=== PATIENT | female | born 1990 | race Caucasian/White ===

== ENCOUNTER 2023-12-03 21:37 | Inpatient (IN) | payer BC, SELFPAY ==
--- NOTE | ~2023-12-03 | MR_ITS ---
EXAMINATION: MR cervical spine wo/w con DATE: 12/04/2023 14:54 INDICATION: Ascending neuropathy. TECHNIQUE: Magnetic resonance imaging (MRI) of the cervical spine was performed without and with 20 m L MultiHance intravenous contrast. COMPARISON: None FINDINGS: There is mild kyphosis of cervical spine. Vertebral body heights are normal. There is mildl y decreased disc height at C5-C6. There are lesions of increased T2-weighted signal intensity in the spinal cord at C2-C3 and C3-C4. There is contrast enhancement in the lesion at C3-C4. The following d isc levels are specifically discussed: C2-C3: The disc does not extend beyond the endplate margin. There is no uncovertebral joint osteoarth ritis. There is moderate bilateral facet joint osteoarthritis. There is no neural foraminal stenosis. There is no central canal stenosis. C3-C4: There is a central extrusion. There is mild bilateral uncovertebral joint osteoarthritis. Ther e is mild bilateral facet joint osteoarthritis. There is no neural foraminal stenosis. There is no ce ntral canal stenosis. C4-C5: There is a central protrusion. There is mild right uncovertebral joint osteoarthritis. There i s no facet joint osteoarthritis. There is no neural foraminal stenosis. There is no central canal philly nosis. C5-C6: There is a central extrusion. There is mild bilateral uncovertebral joint osteoarthritis. Ther e is no facet joint osteoarthritis. There is no neural foraminal stenosis. There is mild central vidhi l stenosis. C6-C7: There is a central extrusion. There is no uncovertebral joint osteoarthritis. There is no face t joint osteoarthritis. There is no neural foraminal stenosis. There is mild central canal stenosis. C7-T1: The disc does not extend beyond the endplate margin. There is no uncovertebral joint osteoarth ritis. There is mild bilateral facet joint osteoarthritis. There is no neural foraminal stenosis. The re is no central canal stenosis. IMPRESSION: 1. 2 spinal cord lesions with enhancement in one of the lesions, most likely multiple sclerosis. 2. Mild cervical spondylosis. Reviewed, dictated and finalized at location A. IMPRESSION: 1. 2 spinal cord lesions with enhancement in one of the lesions, most likely mu ltiple sclerosis. 2. Mild cervical spondylosis.
--- NOTE | ~2023-12-03 | CT_ITS ---
EXAMINATION: CT thoracic lumbar w con DATE: 12/04/2023 15:08 INDICATION: Ascending neuropathy. TECHNIQUE: Computed tomography (CT) of the thoracic and lumbar spine was performed with 100 mL Omnipa que 350 intravenous contrast. Automated exposure control and iterative reconstruction technique were employed. The dose-length product was 529.67 mGy-cm. COMPARISON: Thoracic and lumbar spine MRI 12/04/2023 FINDINGS: CT THORACIC SPINE: Bone alignment is normal. There are Schmorl's nodes at multiple levels. There is m ildly decreased disc height at T5-T6 and T7-T8. There is multilevel mild facet joint osteoarthritis. There is mild central canal stenosis at T5-T6 and T7-T8. No neural foraminal stenosis. CT LUMBAR SPINE: There is 5 degrees levocurvature of lumbar spine. Vertebral body heights are normal. There is mildly decreased disc height at L4-L5. The following disc levels are specifically discussed : L1-L2: The disc does not extend beyond the endplate margin. There is mild bilateral facet joint osteo arthritis. There is no neural foraminal stenosis. There is no central canal stenosis. L2-L3: The disc does not extend beyond the endplate margin. There is mild bilateral facet joint osteo arthritis. There is no neural foraminal stenosis. There is no central canal stenosis. L3-L4: The disc is mildly bulging. There is mild bilateral facet joint osteoarthritis. There is mild bilateral neural foraminal stenosis. There is no central canal stenosis. L4-L5: The disc is bulging. There is mild bilateral facet joint osteoarthritis. There is mild bilater al neural foraminal stenosis. There is mild central canal stenosis. L5-S1: The disc is bulging. There is mild bilateral facet joint osteoarthritis. There is no neural fo raminal stenosis. There is mild central canal stenosis. IMPRESSION: 1. Mild thoracic spondylosis. 2. Mild lumbar spondylosis. Reviewed, dictated and finalized at location A.
--- NOTE | ~2023-12-03 | CT_ITS ---
EXAMINATION: CT cervical spine w con DATE: 12/04/2023 15:08 INDICATION: Ascending neuropathy. TECHNIQUE: Computed tomography (CT) of the cervical spine was performed with 150 mL Omnipaque 350 int ravenous contrast. Automated exposure control and iterative reconstruction technique were employed. T he dose-length product was 529.67 mGy-cm. COMPARISON: Cervical spine MRI 12/04/2023 FINDINGS: There is mild scarring at the lung apices. There is kyphosis of cervical spine. Vertebral b armez heights are normal. Intervertebral disc heights are normal. The following disc levels are specifi viviana discussed: C2-C3: There is mild bilateral uncovertebral joint osteoarthritis. There is moderate bilateral facet joint osteoarthritis. There is no neural foraminal stenosis. There is no central canal stenosis. C3-C4: There is moderate right and mild left uncovertebral joint osteoarthritis. There is mild bilate ral facet joint osteoarthritis. There is no neural foraminal stenosis. There is no central canal sten osis. C4-C5: There is moderate right and mild left uncovertebral joint osteoarthritis. There is mild right facet joint osteoarthritis. There is mild right neural foraminal stenosis. There is no central canal stenosis. C5-C6: There is mild bilateral uncovertebral joint osteoarthritis. There is no facet joint osteoarthr itis. There is no neural foraminal stenosis. There is no central canal stenosis. C6-C7: There is no uncovertebral joint osteoarthritis. There is mild bilateral facet joint osteoarthr itis. There is no neural foraminal stenosis. There is no central canal stenosis. C7-T1: There is no uncovertebral joint osteoarthritis. There is mild bilateral facet joint osteoarthr itis. There is no neural foraminal stenosis. There is no central canal stenosis. IMPRESSION: 1. Mild cervical spondylosis. Reviewed, dictated and finalized at location A.
--- NOTE | ~2023-12-03 | CT_ITS ---
EXAMINATION: CT brain wo/w con DATE: 12/04/2023 15:08 INDICATION: Ascending neuropathy. TECHNIQUE: Computed tomography (CT) of the head was performed without and with 150 mL Omnipaque 350 i ntravenous contrast. The mA was adjusted according to patient size. Iterative reconstruction techniqu e was employed. The dose-length product was 529.67 mGy-cm. COMPARISON: Brain MRI 12/04/2023 FINDINGS: There is no intracranial hemorrhage, acute infarction, or abnormal intracranial mass lesion . The ventricles are normal in size. The orbits are normal. The paranasal sinuses are clear. The mast oid air cells are normal. IMPRESSION: 1. Normal brain. Reviewed, dictated and finalized at location A. IMPRESSION: 1. Normal brain.
--- NOTE | ~2023-12-03 | MR_ITS ---
EXAMINATION: MR thoracic spine wo/w con DATE: 12/04/2023 14:54 INDICATION: Ascending neuropathy. TECHNIQUE: Magnetic resonance imaging (MRI) of the thoracic spine was performed without and with 20 m L MultiHance intravenous contrast. COMPARISON: None FINDINGS: Bone alignment is normal. There are Schmorl's nodes at multiple levels. There is mildly dec reased disc height at T5-T6 and T7-T8. At T5-T6, there is a central protrusion mild central canal philly nosis. At T7-T8, there is a central protrusion with mild central canal stenosis. There is multilevel mild facet joint osteoarthritis. No neural foraminal stenosis. There is increased T2-weighted signal intensity in the spinal cord at T8-T9 with contrast enhancement. There is increased T2-weighted signa l intensity in the spinal cord at the left at T6-T7. IMPRESSION: 1. Spinal cord lesions, most likely multiple sclerosis. Reviewed, dictated and finalized at location A.
--- NOTE | ~2023-12-03 | MR_ITS ---
EXAMINATION: MR lumbar spine wo/w con DATE: 12/04/2023 14:55 INDICATION: Ascending neuropathy. TECHNIQUE: Magnetic resonance imaging (MRI) of the lumbar spine was performed without and with 20 mL MultiHance intravenous contrast. COMPARISON: None FINDINGS: There is 5 degrees levocurvature of lumbar spine. There are Schmorl's nodes at multiple lev els. There is mildly decreased disc height at L4-L5. The distal spinal cord signal intensity is geoffrey l. The conus medullaris is at T12-L1. The following disc levels are specifically discussed: L1-L2: The disc does not extend beyond the endplate margin. There is no facet joint osteoarthritis. T here is no neural foraminal stenosis. There is no central canal stenosis. L2-L3: The disc does not extend beyond the endplate margin. There is mild bilateral facet joint osteo arthritis. There is no neural foraminal stenosis. There is no central canal stenosis. L3-L4: There is a left foraminal protrusion. There is mild bilateral facet joint osteoarthritis. Ther e is mild left neural foraminal stenosis. There is no central canal stenosis. L4-L5: The disc is bulging and has an annular fissure. There is mild left facet joint osteoarthritis. There is mild bilateral neural foraminal stenosis. There is mild central canal stenosis. L5-S1: The disc is bulging and has an annular fissure. There is mild bilateral facet joint osteoarthr itis. There is no neural foraminal stenosis. There is mild central canal stenosis. IMPRESSION: 1. Mild lumbar spondylosis. Reviewed, dictated and finalized at location A. IMPRESSION: 1. Mild lumbar spondylosis.
--- NOTE | ~2023-12-03 | MR_ITS ---
EXAMINATION: MR brain/brain stem wo/w con DATE: 12/04/2023 14:54 INDICATION: Ascending neuropathy. TECHNIQUE: Magnetic resonance imaging (MRI) of the brain and brainstem was performed without and with 20 mL MultiHance intravenous contrast. COMPARISON: None. FINDINGS: There are 2 foci of increased T2-weighted signal intensity in the left-sided deep cerebral white matter. There is increased T2-weighted signal intensity in the spinal cord at C3-C4. No contras t enhancement. There is no acute ischemic infarct or intracranial hemorrhage. The ventricles are norm al in size. There is mild mucosal thickening in the ethmoid sinuses. The orbits are normal. The masto id air cells are normal. IMPRESSION: 1. Cerebral white matter lesions and spinal cord lesion, most likely multiple sclerosis. Reviewed, dictated and finalized at location A. IMPRESSION: 1. Cerebral white matter lesions and spinal cord lesion, most likely multiple s clerosis.
--- NOTE | ~2023-12-03 | XR_ITS ---
EXAMINATION: XR lumbar puncture diagnostic DATE: 12/05/2023 13:04 INDICATION: Multiple sclerosis with ascending neuropathy TECHNIQUE: The procedure including the risks and benefits was discussed with the patient. Risks discu ssed included spinal headache, cerebrospinal fluid leak, bleeding, and infection. The patient underst ood the risks and agreed to proceed. A timeout was performed to verify the patient's name, date of , and procedure to be performed. The skin overlying the L3-L4 level was prepped and draped in usual sterile fashion. Subcutaneous 1% lidocaine was used for local anesthesia. A 22 gauge spinal n eedle was advanced under fluoroscopic guidance. The needle was removed and the entry site was cleaned and dressed. There were no immediate complications. A total of 1 fluoroscopic image(s) were obtaine d. The amount of fluoroscopy time used during this procedure was 0.1 minutes. Total DAP was 0.596 Gyc m^2 The patient was taken to the nursing area for observation. FINDINGS: Real-time fluoroscopy demonstrates the needle at the L3-L4 level. Opening pressure was 14 c m water. (Normal range is variably defined as 6-20 cm water and up to 25 cm water in obese patients. Pressure >25 cm water is one of the modified Dandy criteria for idiopathic intracranial hypertension) . 16 mL of clear, colorless fluid was collected in 4 tubes. IMPRESSION: 1. Successful fluoro-guided lumbar puncture with normal opening pressure of 14 cm water. Reviewed, dictated and finalized at location A.
[2023-12-03 22:12] VITALS: BP 121/85; PULSE 92; RESP 18; TEMP 36.1; O2SAT 100
[2023-12-03 23:37] VITALS: BP 125/74; PULSE 72; RESP 16; TEMP 36.6; O2SAT 100
--- NOTE | 2023-12-04 00:30 | ED.GENADULT ---
HPI - General Adult General Chief complaint: Unspecified Stated complaint: tingling/numbness/weakness from waist down Time Seen by Provider: 12/03/23 23:28 History of Present Illness HPI narrative: This is a 33-year-old female presenting with 3 weeks of peripheral neuropathy. Patient notes that she has had decreased sensation and tingling below the knees. she also says she feels like her legs are weaker although she has not had any falls. She states that sometimes she feels like she has decreased sensation when she wipes although that is intermittent and is not currently happening. She has not had any urinary retention, bowel incontinence, lower extremity weakness, fevers or trauma. no hx of ivda. Patient has no other neurologic deficits. Patient is being worked up for peripheral neuropathy by her primary care physician and he has ordered an extensive laboratory evaluation as well as nerve conduction studies that she is waiting for. Patient is concerned because she does not want to wait 2 weeks for her studies. Related Data Allergies Allergy/AdvReac Type Severity Reaction Status Date / Time No Known Allergies Allergy Verified 12/03/23 21:38 Exam Narrative: APPEARANCE: patient is tearful during the interview. Head: atraumatic. EYES: EOMI, NOSE: Atraumatic NECK: Trachea midline RESPIRATORY: No increased rate of breathing, CTAB CARDIOVASCULAR: RRR, ABDOMINAL: no suprapubic tenderness MUSCULOSKELETAl: No obvious deformities NEURO: Alert. Patient has decreased sensation in a stocking pattern below the knee. It does not follow a dermatomal distribution. Strength is intact at the ankles and knees. The patient is able to walk with a steady gait. No saddle anesthesia. no pain in the legs SKIN:: Warm, dry. Normal color PSYCHIATRIC: Tearful. Course Vital Signs Vital signs: Vital Signs Temperature 96.9 F L 12/03/23 22:12 Pulse Rate 92 12/03/23 22:12 Respiratory Rate 18 12/03/23 22:12 Blood Pressure 121/85 12/03/23 22:12 Pulse Oximetry 100 12/03/23 22:12 Oxygen Delivery Room Air 12/03/23 22:12 Temperature 97.9 F 12/03/23 23:37 Pulse Rate 67 12/04/23 01:23 Respiratory Rate 16 12/04/23 01:23 Blood Pressure 137/85 12/04/23 01:23 Pulse Oximetry 100 12/04/23 01:23 Oxygen Delivery Room Air 12/03/23 22:12 Medical Decision Making MDM Narrative Medical decision making narrative: -Course: 33-year-old female presenting for peripheral neuropathy. Patient says that she has intermittent numbness of groin and paresthesias/weakness below the knees. No weakness on my exam. Patient is tearful and wants to be admitted to get a MRI of head and spine. She asked that I speak with her friend who is a physician. We agreed to do a post void residual to rule out spinal cord compression. Patient then attempted to use the restroom and had a PVD of 400. Patient had denied difficulty urinating on initial interview. Patient will be admitted for neurological evaluation. -DDX includes but is not limited to: Peripheral neuropathy, Charcot Arin Tooth, cauda equina, MS -Co-morbidities complicating care: peripheral neuropathy -Independent interpretation of studies: Basic labs wnl. B12/Folate/ESR pending. -Discussion of Management/Consultants:Olesya Wisdom Hospitalist -Shared decision making / Disposition:observation Vital Signs Vital Signs: Vital Signs Temperature 96.9 F L 12/03/23 22:12 Pulse Rate 92 12/03/23 22:12 Respiratory Rate 18 12/03/23 22:12 Blood Pressure 121/85 12/03/23 22:12 Pulse Oximetry 100 12/03/23 22:12 Oxygen Delivery Room Air 12/03/23 22:12 Temperature 97.9 F 12/03/23 23:37 Pulse Rate 67 12/04/23 01:23 Respiratory Rate 16 12/04/23 01:23 Blood Pressure 137/85 12/04/23 01:23 Pulse Oximetry 100 12/04/23 01:23 Oxygen Delivery Room Air 12/03/23 22:12 Lab Data 12/04/23 00:52 12/04/23 00:52 Labs
[2023-12-04] MEDS: SODIUM CHLORIDE 0.9% IV 1,000 ML 999 ML IV CONT (00:58)
[2023-12-04 01:09] LABS: Basophils Percent Auto 0.6 % (0.2-1.2); Eosinophils Percent Auto 0.3 % (0-4.4); Hematocrit 38.2 % (37.0-47.0); Hemoglobin 12.6 g/dL (12.0-15.0); Immature Granulocyte Absolute 0.01 K/mm3 (0.00-0.031); Immature Granulocyte Percent A 0.2 % (0-0.5); Lymphocytes Absolute Auto 2.02 K/mm3 (0.9-3.2); Lymphocytes Percent Auto 31.4 % (18.3-44.2); Mean Corpuscular Hemoglobin 29.3 pg (26-34); Mean Corpuscular Volume 88.8 fl (80-100); Mean Platelet Volume 10.6 fl (7.4-10.4); Monocytes Absolute Auto 0.5 K/mm3 (0.1-0.6); Monocytes Percent Auto 8.4 % (2.6-8.5); Neutrophils Absolute Auto 3.8 K/mm3 (1.3-6.7); Neutrophils Percent Auto 59.1 % (45.5-73.1); Platelet Count Result 201 k/mm3 (150-375); Red Cell Distribution Width 13.2 % (11.5-14.5); White Blood Count 6.4 K/mm3 (4.5-10.0)
[2023-12-04 01:22] LABS: Alanine Aminotransferase 14 U/L (6-35); Alkaline Phosphatase 56 U/L (38-126); Anion Gap 9 mmol/L (4-12); Aspartate Amino Transferase 23 U/L (14-36); Bilirubin,Total 0.5 mg/dL (0.2-1.3); Blood Urea Nitrogen 13 mg/dL (7-17); CRP < 0.5 mg/dL (<1.0); Calcium 9.9 mg/dL (8.4-10.2); Carbon Dioxide 28 mmol/L (22-30); Chloride 102 mmol/L (98-107); Estimated CRCL calculation 115 ml/min; Estimated Glomerular Filt Rate > 60; Glucose 101 mg/dL (65-110); Potassium 3.5 mmol/L (3.4-5.0); Sodium 139 mmol/L (137-145)
[2023-12-04 01:23] VITALS: BP 137/85; PULSE 67; RESP 16; O2SAT 100
[2023-12-04 01:38] LABS: Erythrocyte Sedimentation Rate 26 mm/hr (0-20)
--- NOTE | 2023-12-04 02:12 | ADMGEN ---
This patient, Alexandra Santamaria, was admitted to 2 Medical Room 251-. Patient/family oriented to hospital policies and general routines including ID bracelet, bed and alarms, visiting hours, pain management, procedures, bathroom and other care routines, personal items, smoking policy, room service/diet, and visiting hours. Information on how to activate the Rapid Response Team has been discussed. Patient/Family are encouraged to report perceived risks to care and to ask questions if they do not understand what they are told or what they should do.
[2023-12-04 02:14] VITALS: BMI 33.2
[2023-12-04 02:16] VITALS: BP 118/85; PULSE 61; RESP 16; TEMP 36.3; O2SAT 100
[2023-12-04 02:17] VITALS: PULSE 67; RESP 16; O2SAT 100
[2023-12-04 02:25] LABS: Folic Acid 16.9 ng/mL (2.76->20)
[2023-12-04 04:53] VITALS: BP 117/63; PULSE 77; RESP 18; TEMP 36.3; O2SAT 98
--- NOTE | 2023-12-04 11:34 | WPDNEURCNPN ---
Consult date: 12/04/23 HPI: Alexandra Santamaria is a 33 year old femaleAdmitted to the hospital through the emergency room for the complaints of tingling numbness and weakness from the waist down and specific statement that she has had decreased sensation and tingling below the knees and she feels like her lower extremities are weaker though she has had no falls, she has had decreased sensation on wiping intermittently though currently is stable, he has had no urinary retention, bowel incontinence lower extremity weakness she has seen her primary physician who is working her up for the peripheral neuropathy and extensive lab has already been ordered. She is not allergic to any medication her initial vital signs were normal CBC was normal BMP was normal she has been admitted to the hospital with the diagnosis of peripheral neuropathy and all other imaging studies are pending FOR[facility]LY [facility] Social History Social History Smoking status: Never smoker Alcohol intake: current Drinks per week: 10 Substance use: current Do You Feel Safe in your Home?: Yes Lack of Transportation: No Lack of Food: Never True Current Housing: I Have Housing Concerned About Future Housing: No Difficulty Paying Gas/Electric Bills: No Difficulty Paying for Meds: No Currently Unemployed: No Education: Bachelor's Degree Difficulty w/ Childcare or Family Care: No Spiritual care concerns: No Meds Home Medications and Allergies Home Medications Medication Instructions Recorded Confirmed Type No Home Medications 12/04/23 12/04/23 History Allergies Allergy/AdvReac Type Severity Reaction Status Date / Time No Known Allergies Allergy Verified 12/04/23 03:18 Vital Signs Vital Signs - 24 hr 12/03/23 22:12 12/03/23 23:37 12/03/23 23:37 Temperature 36.1 C L 36.6 C Pulse Rate 92 72 72 Respiratory Rate 18 16 Blood Pressure 121/85 125/74 Pulse Oximetry 100 100 Oxygen Delivery Room Air 12/04/23 01:23 12/04/23 02:17 12/04/23 02:16 Temperature 36.3 C L Pulse Rate 67 67 61 Respiratory Rate 16 16 16 Blood Pressure 137/85 118/85 Pulse Oximetry 100 100 100 Oxygen Delivery Room Air 12/04/23 04:53 12/04/23 09:00 Temperature 36.3 C L Pulse Rate 77 Respiratory Rate 18 Blood Pressure 117/63 Pulse Oximetry 98 Oxygen Delivery Room Air Results Labs 12/04/23 00:52 12/04/23 00:52 Labs: Short CBC 12/04/23 Range/Units 00:52 WBC 6.4 (4.5-10.0) K/mm3 Hgb 12.6 (12.0-15.0) g/dL Hct 38.2 (37.0-47.0) % Plt Count 201 (150-375) k/mm3 BMP 12/04/23 00:52 Sodium 139 Potassium 3.5 Chloride 102 Carbon Dioxide 28 BUN 13 Creatinine 0.80 Glucose 101 Calcium 9.9 Liver Function 12/04/23 Range/Units 00:52 Total Bilirubin 0.5 (0.2-1.3) mg/dL AST 23 (14-36) U/L ALT 14 (6-35) U/L Alkaline Phosphatase 56 (38-126) U/L Albumin 5.0 (3.5-5.1) g/dL
[2023-12-04 12:25] LABS: Rheumatoid Factor < 12.0 IU/ML (<12)
--- NOTE | 2023-12-04 14:25 | PM.IMHP ---
H&P: HPI History of Present Illness Date/Time: 12/04/23 14:25 Chief Complaint: Ascending peripheral neuropathy Narrative: This is a 33-year-old female that is 7 months that presented to ED on 12/03/2023 due to worsening peripheral neuropathy. Patient had noticed numbness and tingling in her feet starting approximately 3 weeks ago. She had been in [place] at the time in a hot tub and when she got out she noticed the bottoms of her feet were numb and tingling. she also endorses multiple bug bites during her trip to [place]. Since this incident the numbness and tingling has increased and moved up into her knees. She also endorses some numbness around her anus and vagina when wiping after using the bathroom. This is not constant but intermittent. She denies urinary or fecal incontinence. She has been seeing her PCP for this but her workup so far has been negative. her most recent illness was with COVID back in August, she denies any GI illnesses. She does have associated low back pain but no spinal tenderness. She has not started any recent medications, denies falls and recent injury. No history of neurologic disorders in her family. She does have some decreased sensation in the bilateral feet as well as weakness bilaterally. She denies any symptoms in her hands. ED vitals: BP 121/85, pulse 92, respirations 18, temp 96.9?, O2 saturation 100 RA Workup in the ED: insignificant CBC and CMP, elevated ESR of 26, normal CRP, B12 and folate within normal limits. [facility] Social History Social History Smoking status: Never smoker Alcohol intake: current Drinks per week: 10 Substance use: current Do You Feel Safe in your Home?: Yes Lack of Transportation: No Lack of Food: Never True Current Housing: I Have Housing Concerned About Future Housing: No Difficulty Paying Gas/Electric Bills: No Difficulty Paying for Meds: No Currently Unemployed: No Education: Bachelor's Degree Difficulty w/ Childcare or Family Care: No Spiritual care concerns: No Meds Home Medications and Allergies Home Medications Medication Instructions Recorded Confirmed Type No Home Medications 12/04/23 12/04/23 History Allergies Allergy/AdvReac Type Severity Reaction Status Date / Time No Known Allergies Allergy Verified 12/04/23 03:18 Vital Signs Vital Signs - 24 hr 12/03/23 22:12 12/03/23 23:37 12/03/23 23:37 Temperature 96.9 F L 97.9 F Pulse Rate 92 72 72 Respiratory Rate 18 16 Blood Pressure 121/85 125/74 Pulse Oximetry 100 100 Oxygen Delivery Room Air 12/04/23 01:23 12/04/23 02:17 12/04/23 02:16 Temperature 97.4 F L Pulse Rate 67 67 61 Respiratory Rate 16 16 16 Blood Pressure 137/85 118/85 Pulse Oximetry 100 100 100 Oxygen Delivery Room Air 12/04/23 04:53 12/04/23 09:00 Temperature 97.3 F L Pulse Rate 77 Respiratory Rate 18 Blood Pressure 117/63 Pulse Oximetry 98 Oxygen Delivery Room Air Exam Narrative: GENERAL: Comfortable, no acute distress HENMT: moist mucous membranes EYES: EOM intact b/l NECK: no lymphadenopathy RESPIRATORY: clear to auscultation, no increased respiratory effort CARDIO: Regular rate and rhythm GI: soft, nontender, bowel sounds present SKIN/EXTREMITIES: no rashes, no edema, no redness or tenderness NEURO: PROM intact, answers questions appropriately, A&O x4 , decreased sensation at the bottom of bilateral feet, bilateral lower extremity weakness with dorsiflexion of the feet, absent Babinski H&P: Results Labs Labs: Short CBC 12/04/23 Range/Units 00:52 WBC 6.4 (4.5-10.0) K/mm3 Hgb 12.6 (12.0-15.0) g/dL Hct 38.2 (37.0-47.0) % Plt Count 201 (150-375) k/mm3 BMP 12/04/23 00:52 Sodium 139 Potassium 3.5 Chloride 102 Carbon Dioxide 28 BUN 13 Creatinine 0.80 Glucose 101 Calcium 9.9 Liver Function 12/04/23 Range/Units 00:52 Total Bilirubin 0.5 (0.2-1.3) mg/dL
[2023-12-04 19:37] VITALS: BP 109/59; PULSE 72; RESP 18; TEMP 36.4; O2SAT 100
[2023-12-04 20:14] LABS: HIV 1/2 Ab P24 Ag Result Negative (Negative)
[2023-12-05 03:56] VITALS: BP 116/65; PULSE 69; RESP 18; TEMP 36.3; O2SAT 98
[2023-12-05 05:05] LABS: Hematocrit 38.4 % (37.0-47.0); Hemoglobin 12.3 g/dL (12.0-15.0); Mean Corpuscular Volume 90.6 fl (80-100); Mean Platelet Volume 10.5 fl (7.4-10.4); Platelet Count Result 193 k/mm3 (150-375); Red Blood Count 4.24 M/mm3 (4.2-5.4); Red Cell Distribution Width 13.2 % (11.5-14.5); White Blood Count 4.7 K/mm3 (4.5-10.0)
[2023-12-05 05:17] LABS: Anion Gap 5 mmol/L (4-12); Blood Urea Nitrogen 11 mg/dL (7-17); Calcium 9.2 mg/dL (8.4-10.2); Carbon Dioxide 26 mmol/L (22-30); Chloride 106 mmol/L (98-107); Estimated CRCL calculation 130 ml/min; Estimated Glomerular Filt Rate > 60; Glucose 106 mg/dL (65-110); INR 1.1; Potassium 4.1 mmol/L (3.4-5.0); Prothrombin Time 14.8 Seconds (11.1-14.7); Sodium 137 mmol/L (137-145)
[2023-12-05 05:18] LABS: Partial Thromboplastin Time 27.6 Seconds (22.3-36.8)
[2023-12-05 05:37] LABS: Hemoglobin A1C 4.7 % (<5.7)
--- NOTE | 2023-12-05 07:27 | PM.IMPN ---
Progress Note: A&P Assessment and Plan (1) Multiple sclerosis: Code(s): G35 - Multiple sclerosis Status: Acute Assessment and Plan: Patient presents to the ED due to worsening ascending peripheral neuropathy for 3-4 weeks. She states she has tingling/numbness from the waist down with decreased sensation when wiping intermittently. Denies urinary retention, bowel incontinence, and falls. Neurology consulted. Labs ordered: Multiple sclerosis panel, Lymes disease IgG, Coccidioides, CMV, West Nile, VZV, PENELOPE, A1C, RPR pending. HIV and RF negative. CT C/T/L spine: Mild spondylosis MRI brain: Cerebral white matter lesions and spinal cord lesion, most likely multiple sclerosis. MRI C spine: 2 spinal cord lesions with enhancement in one of the lesions, most likely multiple sclerosis. Mild cervical spondylosis. MRI T spine: Spinal cord lesions, most likely multiple sclerosis. MRI L spine: ?Mild lumbar spondylosis. Lumbar puncture pending Patient evaluated by neurology who states that with the clinical presentation and the abnormal neurological finding most likely diagnosis is demyelinating disease. Discussed patient with Dr. Parsons. He states to start patient on Medrol 1g IV x 5 days and keep patient inpatient. At time of discharge patient will need to be started on a medrol dose pack taper. Patient will likely need nerve conduction test as an outpatient. Time Spent With Patient Time with patient: 25 - 35 minutes Subjective Date/time seen: 12/05/23 07:27 Interval history: 33 year old female who is 7 months post with no past medical history presented to the hospital for worsening peripheral neuropathy for 3-4 weeks. She continues to have tingling and numbness to her bilateral lower extremities from the knees down. She states these symptoms are more consistent since yesterday and remain present when lying down. She states that yesterday the tingling/numbness would subside some when lying down. She notes that when she walks around her room it feels as though her legs are moving in slow motion and not cooperating with her. She has not experienced the numbness around her anus/vagina when wiping since prior to admission. She denies vision changes and optic headaches. She denies urinary/bowel incontinence and falls. She has not had similar symptoms in the past. She was evaluated by neurology who states that most likely diagnosis is demyelinating disease. Patient is aware of diagnosis. Spoke with Dr. Parsons neurology and patient will remain inpatient for Medrol 1g IVPB x5 days. She will then be discharged on a medrol dose pack taper. Discussed plan of care with patient and she states understanding. Review of Systems Review of Systems: All systems reviewed & are unremarkable except as noted in HPI and below Exam Narrative: AF HR 60 RR 16 SpO2 99 BP 130/79 General: well nourished, well-developed female in no acute respiratory distress who is nontoxic appearing, sitting up in bed. HEENT: Normocephalic. Atraumatic. Pupils equal round reactive to light. Extraocular movement intact. Sclera clear and anicteric. Nares patent. No facial asymmetry. Chest: Lungs are clear to auscultation bilaterally. No wheezes or crackles. CV: Heart was regular rate and rhythm. S1-S2. No murmurs, gallops, or rubs. Abd: Abdomen was soft. Nontender. Nondistended. Positive bowel sounds. No organomegaly or masses. Ext: No clubbing, cyanosis, or edema. 2+ DP pulses bilaterally. Neuro: Patient is alert and oriented x4. Strength is 5/5 in upper extremities. Strength 3/5 in lower extremities. Brisk patellar DTR. Decreased strength of dorsal flexion. Cranial nerves 2-12 are intact. Speech is clear. Psych: Tearful mood and affect. Patient is pleasant and cooperative. Skin: Warm and dry. No rashes noted. Objective Data Vital Signs Vital Signs: Vital Signs - 24 hr 12/04/23 09:00 12/04/23 19:37 12/05/23 03:56 Temperature 97.5 F L 97.4 F L
[2023-12-05 08:41] VITALS: O2SAT 99
[2023-12-05] MEDS: ACETAMINOPHEN 325 MG TABLET 650 MG PO ×2 (10:17→15:24)
--- NOTE | 2023-12-05 11:20 | WPDNEURCNPN ---
Assessment and Plan Assessment and plan (1) Multiple sclerosis: Code(s): G35 - Multiple sclerosis Status: Acute Plan Considering the clinical presentation with the abnormal neurological finding most likely diagnosis is demyelinating disease the spinal fluid studies will be obtained and patient will be treated accordingly. Consult date: 12/05/23 HPI: Alexandra Santamaria is a 33 year old femaleAdmitted to the hospital through the emergency room for the complaints of tingling and numbness and weakness from the waist down with specific statement that she has had decreased sensation and tingling below the knees and feels like her lower extremities are weaker. She gave no history of fall but she did complain of decreased sensation wiping intermittently though currently she is stable has had no urinary retention, bowel incontinence, she has been to her primary physician who was evaluating her for the possibility of peripheral neuropathy and extent the lab has been ordered she is not allergic to any medication. Her initial vital signs were normal including CBC BMP she was admitted to the hospice with the diagnosis of peripheral neuropathy other imaging studies were pending. Since admission she has had the complete blood workup which included the basic metabolic panel which is completely normal GFR is more than 60 glucose 106 with hemoglobin A1c of 4.7 glucose 106 hemoglobin A1c 4.7 cm 9.2 CRP 0.5 B12 level 773 folate level 16.9 total protein 8.0 PENELOPE is pending and rheumatoid factor less than 12 done as an outpatient his spinal fluid studies are being done. Brain MRI and brain stem documented 2 foci of increased T2 weighted signal intensity in the left-sided deep cerebral white matter and at the level of C3 and C4 in the cervical spinal cord without any contrast enhancement without any bleed normal ventricles and also normal orbits MRI of cervical spine documented 2 spinal cord lesions with enhancement in 1 of the lesion suggestive of multiple sclerosis thoracic MRI documented T2 weighted signal intensity in the spinal cord at T8 and T9 with contrast enhancement in the same spinal cord lesion at the level of T6 and T7 in addition to incidental finding of T5-T6 T7-T8 central protrusion with mild central canal stenosis [facility] Social History Social History Smoking status: Never smoker Alcohol intake: current Drinks per week: 10 Substance use: current Do You Feel Safe in your Home?: Yes Lack of Transportation: No Lack of Food: Never True Current Housing: I Have Housing Concerned About Future Housing: No Difficulty Paying Gas/Electric Bills: No Difficulty Paying for Meds: No Currently Unemployed: No Education: Bachelor's Degree Difficulty w/ Childcare or Family Care: No Spiritual care concerns: No Meds Home Medications and Allergies Home Medications Medication Instructions Recorded Confirmed Type No Home Medications 12/04/23 12/04/23 History Allergies Allergy/AdvReac Type Severity Reaction Status Date / Time No Known Allergies Allergy Verified 12/04/23 03:18 Vital Signs Vital Signs - 24 hr 12/04/23 19:37 12/05/23 03:56 12/05/23 08:41 Temperature 36.4 C L 36.3 C L Pulse Rate 72 69 Respiratory Rate 18 18 Blood Pressure 109/59 L 116/65 Pulse Oximetry 100 98 99 Oxygen Delivery Room Air 12/05/23 09:20 Temperature Pulse Rate Respiratory Rate Blood Pressure Pulse Oximetry Oxygen Delivery Room Air Exam Narrative: revealed her to be awake alert cooperative in no obvious acute distress, head normocephalic with no cranial bruit, ear nose throat examination normal, neck supple with no cervical bruit no thyromegaly no lymphadenopathy, heart regular with no murmur lungs clear to auscultation abdomen is soft with no organomegaly neurological is she is awake alert oriented x3 at this stage she has signs of mild depression speech nor
--- NOTE | 2023-12-05 11:54 | PC.NURSE ---
To Radiology via wheelchair for lumbar puncture.
[2023-12-05 12:56] VITALS: BP 128/70; PULSE 53; RESP 16; O2SAT 99
[2023-12-05 12:58] VITALS: BP 130/79; PULSE 60; RESP 16; O2SAT 99
--- NOTE | 2023-12-05 13:45 | PC.NURSE ---
Patient returned to floor via bed from radiology. Patient has no complaints at this time.
[2023-12-05 14:10] VITALS: BP 111/56; PULSE 54; RESP 16; TEMP 35.8; O2SAT 100
[2023-12-05] MEDS: methylPREDNISolone SOD SUCC 1,000 MG in DEXTROSE 5% 100 ML 200 MG IVPB (15:16)
[2023-12-05 15:48] LABS: Rapid Plasma Reagin Non-Reactive (NonReactive)
[2023-12-05] MEDS: ONDANSETRON INJ 4 MG/2 ML VIAL IV PUSH (16:41)
[2023-12-05 22:00] VITALS: BP 130/74; PULSE 77; RESP 20; TEMP 36.6; O2SAT 99
[2023-12-06 04:20] VITALS: BP 125/70; PULSE 91; RESP 16; TEMP 36.3; O2SAT 97
[2023-12-06] MEDS: ACETAMINOPHEN 325 MG TABLET 650 MG PO ×3 (05:14→13:49)
--- NOTE | 2023-12-06 06:49 | PM.IMPN ---
Progress Note: A&P Assessment and Plan (1) Multiple sclerosis: Code(s): G35 - Multiple sclerosis Status: Acute Assessment and Plan: Patient presents to the ED due to worsening ascending peripheral neuropathy for 3-4 weeks. She states she has tingling/numbness from the waist down with decreased sensation when wiping intermittently. Denies urinary retention, bowel incontinence, and falls. No vision changes or optic neuritis symptoms. Neurology consulted. Labs ordered: Multiple sclerosis panel, Lymes disease IgG, Coccidioides, CMV, West Nile, VZV, PENELOPE, A1C, RPR pending. HIV and RF negative. CT C/T/L spine: Mild spondylosis MRI brain: Cerebral white matter lesions and spinal cord lesion, most likely multiple sclerosis. MRI C spine: 2 spinal cord lesions with enhancement in one of the lesions, most likely multiple sclerosis. Mild cervical spondylosis. MRI T spine: Spinal cord lesions, most likely multiple sclerosis. MRI L spine: ?Mild lumbar spondylosis. Lumbar puncture pending Patient evaluated by neurology who states that with the clinical presentation and the abnormal neurological finding most likely diagnosis is demyelinating disease. Discussed patient with Dr. Parsons. He states to start patient on Medrol 1g IV x 5 days and keep patient inpatient. At time of discharge patient will need to be started on a medrol dose pack taper. Neurology discussed DMT for future particularly Kesimpta vs Ocrevus. Patient is also considering seeing an MS specialist in [facility] Patient will likely need nerve conduction test as an outpatient. Subjective Date/time seen: 12/06/23 06:49 Interval history: 33 year old female who is 7 months post with no past medical history presented to the hospital for worsening peripheral neuropathy for 3-4 weeks. Patient is pleasantly sitting up in bed. She states that since starting the IV steroids her symptoms have somewhat improved. She continues to endorse tingling and numbness below the bilateral knees, but less severe than yesterday. She also notes that when walking she continues to feel weak and slow, but noticeably improved since yesterday. She was evaluated by neurology today who sent an A!P4 and MOG antibody testing. Review of Systems Review of Systems: All systems reviewed & are unremarkable except as noted in HPI and below Exam Narrative: AF HR 91 RR 16 SpO2 97 BP 125/70 General: well nourished, well-developed female in no acute respiratory distress who is nontoxic appearing, sitting up in bed. HEENT: Normocephalic. Atraumatic. Pupils equal round reactive to light. Extraocular movement intact. Sclera clear and anicteric. Nares patent. No facial asymmetry. Chest: Lungs are clear to auscultation bilaterally. No wheezes or crackles. CV: Heart was regular rate and rhythm. S1-S2. No murmurs, gallops, or rubs. Abd: Abdomen was soft. Nontender. Nondistended. Positive bowel sounds. No organomegaly or masses. Ext: No clubbing, cyanosis, or edema. 2+ DP pulses bilaterally. Neuro: Patient is alert and oriented x4. Strength is 5/5 in upper and lower extremities. Normal patellar DTR. Decreased strength of dorsal flexion. Cranial nerves 2-12 are intact. Speech is clear. Psych: Normal mood and affect. Patient is pleasant and cooperative. Skin: Warm and dry. No rashes noted. Objective Data Vital Signs Vital Signs: Vital Signs - 24 hr 12/05/23 08:41 12/05/23 09:20 12/05/23 12:56 Temperature Pulse Rate 53 L Respiratory Rate 16 Blood Pressure 128/70 Pulse Oximetry 99 99 Oxygen Delivery Room Air Room Air 12/05/23 12:58 12/05/23 14:10 12/05/23 22:00 Temperature 96.4 F L 97.8 F Pulse Rate 60 54 L 77 Respiratory Rate 16 16 20 Blood Pressure 130/79 111/56 L 130/74 Pulse Oximetry 99 100 99 Oxygen Delivery 12/06/23 04:20 Temperature 97.3 F L Pulse Rate 91 Respiratory Rate 16 Blood Pressure 125/70 Pulse Oximetry 97 Oxygen Delivery Intake/Output Inta
[2023-12-06 08:18] LABS: Hematocrit 40.3 % (37.0-47.0); Mean Corpuscular HGB Conc 32.3 g/dl (32-36); Mean Corpuscular Hemoglobin 29.3 pg (26-34); Mean Corpuscular Volume 90.8 fl (80-100); Mean Platelet Volume 10.9 fl (7.4-10.4); Platelet Count Result 226 k/mm3 (150-375); Red Blood Count 4.44 M/mm3 (4.2-5.4); Red Cell Distribution Width 12.8 % (11.5-14.5); White Blood Count 11.7 K/mm3 (4.5-10.0)
[2023-12-06] MEDS: methylPREDNISolone SOD SUCC 1,000 MG in DEXTROSE 5% 100 ML 200 MG IVPB (08:22)
[2023-12-06] MEDS: SERTRALINE HCL 50 MG TABLET 150 MG PO (08:22)
[2023-12-06] MEDS: ONDANSETRON INJ 4 MG/2 ML VIAL IV PUSH (08:22)
[2023-12-06 08:38] LABS: Alanine Aminotransferase 14 U/L (6-35); Albumin Level 4.8 g/dL (3.5-5.1); Alkaline Phosphatase 63 U/L (38-126); Anion Gap 10 mmol/L (4-12); Aspartate Amino Transferase 24 U/L (14-36); Bilirubin,Total 0.6 mg/dL (0.2-1.3); Blood Urea Nitrogen 11 mg/dL (7-17); Calcium 9.7 mg/dL (8.4-10.2); Carbon Dioxide 22 mmol/L (22-30); Chloride 105 mmol/L (98-107); Estimated CRCL calculation 150 ml/min; Estimated Glomerular Filt Rate > 60; Glucose 147 mg/dL (65-110); Sodium 137 mmol/L (137-145)
--- NOTE | 2023-12-06 09:38 | WPDNEUROPN ---
Progress Note: A&P Assessment and Plan (1) Multiple sclerosis: Code(s): G35 - Multiple sclerosis Status: Acute Plan Ms. Santamaria is a 33 year old female that is 7 months post- who presented on 12/02 due numbness/tingling in the lower extremities. Neuroimaging showed hyperintese lesions in the subcortical white matter, cervical cord, and thoracic cord, with some of the lesions having contrast enhancement. Imaging findings are concerning for demyelinating disease, specifically multiple sclerosis. CSF studies are pending. She has been started on high dose IV steroids. - Continue IV solumedrol 1000mg daily x 5 days followed by taper - Please start PPI - Will send AQP4 and MOG antibody testing - Discussed DMT for future particularly Kesimpta vs Ocrevus. Patient is also considering seeing an MS specialist in [facility] Subjective Date/time seen: 12/06/23 09:38 Interval history: Ms. Santamaria is a 33 year old female that is 7 months post- who presented on 12/02 due to numbness/tinging in her feet that started about 3 weeks ago. The numbness progressed up to her knees and perineum. Imaging done during this admission is as follows: MRI brain showed T2 hyperintensities in the L deep cerebral white matter, MRI cervical spine showed several cord lesions at C2/C3 and C3/C4 (the latter having contrast enhancement), and thoracic spine MRI showed T2 lesions at T8/T9 with contrast enhancement, and T2 lesions at T6/T7. CSF studies have been obtained which are pending. She has been started on IV solumedrol 1000mg daily. She received her first dose on 12/04. Patient reports that the numbness and weakness in the lower extremities has improved. She denies any prior MS symptoms. No loss of vision, double vision, unilateral weakness/numbness, incontinence/retention, dysphagia or dysarthria. Review of Systems Review of Systems: All systems reviewed & are unremarkable except as noted in HPI and below Exam Const: General: comfortable and no acute distress HENMT: Mouth: Yes moist mucous membranes Eyes: EOM: EOMs intact bilaterally Other: R pupil 3mm and reactive L pupil 5mm and reactive (chronic per patient) Resp: Effort & Inspection: normal respiratory effort Skin: General skin exam: normal color Neuro: Other: AOx3, R pupil 3mm and reactive, L pupil 5mm and reactive, EOMI, face symmetric, facial sensation intact, tongue protrudes midline, palate midline. Shoulder shrug normal. Strength 5/5 throughout. Sensation reduced from the knees down in both lower extremities. Reflexes 2+ in biceps, 3+ patellar, and 2+ AJ bilaterally, No clonus. FNF normal bilaterally. Language comprehension and fluency intact. Gait deferred. Extrem: General: normal to inspection Psych: Mental Status: mental status grossly normal Affect: normal affect Objective Data Vital Signs Vital Signs: Vital Signs - 24 hr 12/05/23 12:56 12/05/23 12:58 12/05/23 14:10 Temperature 35.8 C L Pulse Rate 53 L 60 54 L Respiratory Rate 16 16 16 Blood Pressure 128/70 130/79 111/56 L Pulse Oximetry 99 99 100 12/05/23 22:00 12/06/23 04:20 Temperature 36.6 C 36.3 C L Pulse Rate 77 91 Respiratory Rate 20 16 Blood Pressure 130/74 125/70 Pulse Oximetry 99 97 Intake/Output Intake/Output: Intake & Output 12/03/23 12/04/23 12/05/23 12/06/23 23:59 23:59 23:59 23:59 Intake Total 3320 746 300 Balance 3320 746 300 Meds/Results Medications: Active Medications Generic Name Dose Route Start Last Admin Trade Name Benedictq PRN Reason Stop Dose Admin Acetaminophen 650 mg 12/05/23 09:20 12/06/23 05:14 Acetaminophen 325 Mg Tablet PO 650 mg Q4H PRN Administration Headache Methylprednisolone Sodium 116 mls @ 200 mls/hr 12/05/23 14:00 12/06/23 08:22 Succinate 1,000 mg/ Dextrose IVPB 12/10/23 13:59 200 mls/hr QAM PAT Administration Ondansetron HCl 4 mg 12/05/23 15:53 12/06/23 08:22 Ondansetron Inj 4 Mg/2 Ml Vial IV PUSH
[2023-12-06 14:30] VITALS: BP 123/63; PULSE 77; RESP 16; TEMP 36.2; O2SAT 99
[2023-12-06 14:37] LABS: Lyme Disease Ab (IgM), Blot NEGATIVE (NEGATIVE); Lyme Disease Ab(IgG), Blot NEGATIVE (NEGATIVE)
[2023-12-06] MEDS: KETOROLAC 10 MG TABLET 20 MG PO (17:22)
[2023-12-06 22:50] VITALS: BP 121/63; PULSE 66; RESP 20; TEMP 36.8; O2SAT 99
[2023-12-07 05:55] LABS: Hematocrit 36.9 % (37.0-47.0); Hemoglobin 12.2 g/dL (12.0-15.0); Mean Corpuscular HGB Conc 33.1 g/dl (32-36); Mean Corpuscular Hemoglobin 29.5 pg (26-34); Mean Corpuscular Volume 89.3 fl (80-100); Mean Platelet Volume 10.8 fl (7.4-10.4); Platelet Count Result 237 k/mm3 (150-375); Red Blood Count 4.13 M/mm3 (4.2-5.4); Red Cell Distribution Width 13.2 % (11.5-14.5)
[2023-12-07 06:00] VITALS: BP 126/63; PULSE 74; RESP 20; TEMP 36.9; O2SAT 99
[2023-12-07 06:23] LABS: Alanine Aminotransferase 15 U/L (6-35); Albumin Level 4.5 g/dL (3.5-5.1); Alkaline Phosphatase 53 U/L (38-126); Anion Gap 7 mmol/L (4-12); Aspartate Amino Transferase 21 U/L (14-36); Bilirubin,Total 0.5 mg/dL (0.2-1.3); Blood Urea Nitrogen 15 mg/dL (7-17); Calcium 9.4 mg/dL (8.4-10.2); Carbon Dioxide 26 mmol/L (22-30); Chloride 106 mmol/L (98-107); Estimated CRCL calculation 130 ml/min; Estimated Glomerular Filt Rate > 60; Glucose 137 mg/dL (65-110); Potassium 4.2 mmol/L (3.4-5.0); Sodium 139 mmol/L (137-145)
--- NOTE | 2023-12-07 06:42 | PM.IMPN ---
Progress Note: A&P Assessment and Plan (1) Multiple sclerosis: Code(s): G35 - Multiple sclerosis Status: Acute Assessment and Plan: Patient presents to the ED due to worsening ascending peripheral neuropathy for 3-4 weeks. She states she has tingling/numbness from the waist down with decreased sensation when wiping intermittently. Denies urinary retention, bowel incontinence, and falls. No vision changes or optic neuritis symptoms. Neurology consulted. Labs ordered: Multiple sclerosis panel, Lymes disease IgG, Coccidioides, CMV, West Nile, VZV, PENELOPE, A1C, RPR pending. HIV and RF negative. CT C/T/L spine: Mild spondylosis MRI brain: Cerebral white matter lesions and spinal cord lesion, most likely multiple sclerosis. MRI C spine: 2 spinal cord lesions with enhancement in one of the lesions, most likely multiple sclerosis. Mild cervical spondylosis. MRI T spine: Spinal cord lesions, most likely multiple sclerosis. MRI L spine: ?Mild lumbar spondylosis. Lumbar puncture pending Patient evaluated by neurology who states that with the clinical presentation and the abnormal neurological finding most likely diagnosis is demyelinating disease. Discussed patient with Dr. Parsons. He states to start patient on Medrol 1g IV x 5 days and keep patient inpatient. At time of discharge patient will need to be started on a medrol dose pack taper. Neurology discussed DMT for future particularly Kesimpta vs Ocrevus. Patient is also considering seeing an MS specialist in [facility] Patient will likely need nerve conduction test as an outpatient. Time Spent With Patient Time with patient: 25 - 35 minutes Subjective Date/time seen: 12/07/23 06:42 Interval history: 33 year old female who is 7 months post with no past medical history presented to the hospital for worsening peripheral neuropathy for 3-4 weeks. Patient is pleasant sitting up in bed. She continues to have numbness and tingling to the bilateral lower extremities from the knees down. The tingling/numbness is more severe as it descends. She states these symptoms feel the same compared to yesterday. She continues to walk throughout her room without difficulty. She notes numbness to her lips and 2 front teeth that has been present for an hour but is slowly going away. She denies chest pain, shortness of breath, nausea/vomiting, and changes in bowel/bladder. Review of Systems Review of Systems: All systems reviewed & are unremarkable except as noted in HPI and below Exam Narrative: AF HR 71 RR 16 SpO2 97 BP 118/69 General: well nourished, well-developed female in no acute respiratory distress who is nontoxic appearing, sitting up in bed. HEENT: Normocephalic. Atraumatic. Pupils equal round reactive to light. Extraocular movement intact. Sclera clear and anicteric. Nares patent. No facial asymmetry. Chest: Lungs are clear to auscultation bilaterally. No wheezes or crackles. CV: Heart was regular rate and rhythm. S1-S2. No murmurs, gallops, or rubs. Abd: Abdomen was soft. Nontender. Nondistended. Positive bowel sounds. No organomegaly or masses. Ext: No clubbing, cyanosis, or edema. 2+ DP pulses bilaterally. Neuro: Patient is alert and oriented x4. Strength is 5/5 in upper and lower extremities. Normal patellar DTR. Increased strength of dorsal flexion. Cranial nerves 2-12 are intact. Sensation decreased knees down bilaterally. Speech is clear. Psych: Normal mood and affect. Patient is pleasant and cooperative. Skin: Warm and dry. No rashes noted. Objective Data Vital Signs Vital Signs: Vital Signs - 24 hr 12/06/23 08:15 12/06/23 14:30 12/06/23 20:00 Temperature 97.2 F L Pulse Rate 77 Respiratory Rate 16 Blood Pressure 123/63 Pulse Oximetry 99 Oxygen Delivery Room Air Room Air 12/06/23 22:50 Temperature 98.3 F Pulse Rate 66 Respiratory Rate 20 Blood Pressure 121/63 Pulse Oximetry 99 Oxygen Delivery Intake/Output Intake/Output:
[2023-12-07] MEDS: ONDANSETRON INJ 4 MG/2 ML VIAL IV PUSH (08:45)
[2023-12-07] MEDS: SERTRALINE HCL 50 MG TABLET 150 MG PO (08:45)
[2023-12-07] MEDS: PANTOPRAZOLE 40 MG TABLET PO (08:45)
[2023-12-07] MEDS: methylPREDNISolone SOD SUCC 1,000 MG in DEXTROSE 5% 100 ML 200 MG IVPB (08:46)
[2023-12-07] MEDS: KETOROLAC 10 MG TABLET PO (08:46)
--- NOTE | 2023-12-07 09:46 | WPDNEUROPN ---
Progress Note: A&P Assessment and Plan (1) Multiple sclerosis: Code(s): G35 - Multiple sclerosis Status: Acute Plan Ms. Santamaria is a 33 year old female that is 7 months post- who presented on 12/02 due numbness/tingling in the lower extremities. Neuroimaging showed hyperintese lesions in the subcortical white matter, cervical cord, and thoracic cord, with some of the lesions having contrast enhancement. Imaging findings are concerning for demyelinating disease, specifically multiple sclerosis. CSF studies are pending. She has been started on high dose IV steroids. Some improvement in symptoms since then. - Continue IV solumedrol 1000mg daily x 5 days followed by taper - Please start PPI - Ordered AQP4 and MOG antibody testing - Discussed DMT for future particularly Kesimpta vs Ocrevus. Patient is also considering seeing an MS specialist in [facility] - Provided office information to coordinate follow-up after discharge Subjective Date/time seen: 12/07/23 09:46 Interval history: Ms. Santamaria is a 33 year old female that is 7 months post- who presented on 12/02 due to numbness/tinging in her feet that started about 3 weeks ago. The numbness progressed up to her knees and perineum. Imaging done during this admission is as follows: MRI brain showed T2 hyperintensities in the L deep cerebral white matter, MRI cervical spine showed several cord lesions at C2/C3 and C3/C4 (the latter having contrast enhancement), and thoracic spine MRI showed T2 lesions at T8/T9 with contrast enhancement, and T2 lesions at T6/T7. CSF studies have been obtained which are pending. She denies any prior MS symptoms. No loss of vision, double vision, unilateral weakness/numbness, incontinence/retention, dysphagia or dysarthria. She has been started on IV solumedrol 1000mg daily. She received her first dose on 12/04. Patient reports that the numbness and weakness in the lower extremities had improved yesterday. Symptoms are still present today. She has been walking to the bathroom without any difficulty. Today is day 3 of steroids. Review of Systems Review of Systems: All systems reviewed & are unremarkable except as noted in HPI and below Exam Const: General: comfortable and no acute distress HENMT: Mouth: Yes moist mucous membranes Eyes: EOM: EOMs intact bilaterally Other: R pupil 3mm and reactive L pupil 5mm and reactive (chronic per patient) Resp: Effort & Inspection: normal respiratory effort Skin: General skin exam: normal color Neuro: Other: AOx3, R pupil 3mm and reactive, L pupil 5mm and reactive, EOMI, face symmetric, facial sensation intact, tongue protrudes midline, palate midline. Shoulder shrug normal. Strength 5/5 throughout. Sensation reduced from the knees down in both lower extremities. Reflexes 2+ in biceps, 3+ patellar, and 2+ AJ bilaterally, No clonus. FNF normal bilaterally. Language comprehension and fluency intact. Gait deferred. Extrem: General: normal to inspection Psych: Mental Status: mental status grossly normal Affect: normal affect Objective Data Vital Signs Vital Signs: Vital Signs - 24 hr 12/06/23 14:30 12/06/23 20:00 12/06/23 22:50 Temperature 36.2 C L 36.8 C Pulse Rate 77 66 Respiratory Rate 16 20 Blood Pressure 123/63 121/63 Pulse Oximetry 99 99 Oxygen Delivery Room Air 12/07/23 06:00 12/07/23 08:40 Temperature 36.9 C Pulse Rate 74 Respiratory Rate 20 Blood Pressure 126/63 Pulse Oximetry 99 Oxygen Delivery Room Air Intake/Output Intake/Output: Intake & Output 12/04/23 12/05/23 12/06/23 12/07/23 23:59 23:59 23:59 23:59 Intake Total 3320 746 2476 960 Balance 3320 746 2476 960 Meds/Results Medications: Active Medications Generic Name Dose Route Start Last Admin Trade Name Freq PRN Reason Stop Dose Admin Acetaminophen 650 mg 12/05/23 09:20 12/06/23 13:49 Acetaminophen 325 Mg Tablet PO 650 mg Q4H PRN Administration Headache
[2023-12-07] MEDS: ACETAMINOPHEN 325 MG TABLET 650 MG PO ×2 (12:24→20:42)
[2023-12-07 13:53] VITALS: BP 118/69; PULSE 71; RESP 16; TEMP 35.8; O2SAT 97
[2023-12-07 21:58] VITALS: BP 122/63; PULSE 73; RESP 16; TEMP 36.6; O2SAT 99
[2023-12-08 05:34] LABS: Hematocrit 35.7 % (37.0-47.0); Hemoglobin 11.6 g/dL (12.0-15.0); Mean Corpuscular HGB Conc 32.5 g/dl (32-36); Mean Corpuscular Hemoglobin 29.2 pg (26-34); Mean Corpuscular Volume 89.9 fl (80-100); Mean Platelet Volume 11.3 fl (7.4-10.4); Platelet Count Result 198 k/mm3 (150-375); Red Blood Count 3.97 M/mm3 (4.2-5.4); Red Cell Distribution Width 13.2 % (11.5-14.5); White Blood Count 11.4 K/mm3 (4.5-10.0)
[2023-12-08 05:50] LABS: Alanine Aminotransferase 15 U/L (6-35); Albumin Level 4.3 g/dL (3.5-5.1); Alkaline Phosphatase 50 U/L (38-126); Anion Gap 7 mmol/L (4-12); Aspartate Amino Transferase 16 U/L (14-36); Bilirubin,Total 0.3 mg/dL (0.2-1.3); Blood Urea Nitrogen 14 mg/dL (7-17); Calcium 9.1 mg/dL (8.4-10.2); Carbon Dioxide 24 mmol/L (22-30); Chloride 107 mmol/L (98-107); Estimated CRCL calculation 150 ml/min; Estimated Glomerular Filt Rate > 60; Glucose 132 mg/dL (65-110); Potassium 4.1 mmol/L (3.4-5.0); Sodium 138 mmol/L (137-145)
[2023-12-08 06:00] VITALS: BP 119/69; PULSE 65; RESP 18; TEMP 36.5; O2SAT 98
--- NOTE | 2023-12-08 06:42 | PM.IMPN ---
Progress Note: A&P Assessment and Plan (1) Multiple sclerosis: Code(s): G35 - Multiple sclerosis Status: Acute Assessment and Plan: Patient presents to the ED due to worsening ascending peripheral neuropathy for 3-4 weeks. She states she has tingling/numbness from the waist down with decreased sensation when wiping intermittently. Denies urinary retention, bowel incontinence, and falls. No vision changes or optic neuritis symptoms. Neurology consulted. Labs ordered: Multiple sclerosis panel, Coccidioides, CMV, West Nile, VZV pending. HIV, Lymes disease IgG, RPR, and RF negative. PENELOPE positive. A1c 4.7. CT C/T/L spine: Mild spondylosis MRI brain: Cerebral white matter lesions and spinal cord lesion, most likely multiple sclerosis. MRI C spine: 2 spinal cord lesions with enhancement in one of the lesions, most likely multiple sclerosis. Mild cervical spondylosis. MRI T spine: Spinal cord lesions, most likely multiple sclerosis. MRI L spine: ?Mild lumbar spondylosis. Lumbar puncture pending Patient evaluated by neurology who states that with the clinical presentation and the abnormal neurological finding most likely diagnosis is demyelinating disease. Discussed patient with Dr. Parsons. He states to start patient on Medrol 1g IV x 5 days and keep patient inpatient. At time of discharge patient will need to be started on a medrol dose pack taper. Neurology discussed DMT for future particularly Kesimpta vs Ocrevus. Patient is also considering seeing an MS specialist in [facility] Patient will likely need nerve conduction test as an outpatient. Time Spent With Patient Time with patient: 25 - 35 minutes Subjective Date/time seen: 12/08/23 06:42 Interval history: 33 year old female who is 7 months post with no past medical history presented to the hospital for worsening peripheral neuropathy for 3-4 weeks. Patient is pleasant sitting up in bed with family at bedside. She continues to have tingling and numbness bilaterally below the knees but states this has decreased on the shins. The tingling to the lips and teeth remains intermittent. She also notes that the numbness of the genital area while wiping has returned today. She denies vision changes. She states she has not had a bowel movement. Senna ordered. Patient denies chest pain, shortness of breath, nausea/vomiting. Review of Systems Review of Systems: All systems reviewed & are unremarkable except as noted in HPI and below Exam Narrative: AF HR 72 RR 16 SpO2 98 BP 137/63 General: well nourished, well-developed female in no acute respiratory distress who is nontoxic appearing, sitting up in bed. HEENT: Normocephalic. Atraumatic. Pupils equal round reactive to light. Extraocular movement intact. Sclera clear and anicteric. Nares patent. No facial asymmetry. Chest: Lungs are clear to auscultation bilaterally. No wheezes or crackles. CV: Heart was regular rate and rhythm. S1-S2. No murmurs, gallops, or rubs. Abd: Abdomen was soft. Nontender. Nondistended. Positive bowel sounds. No organomegaly or masses. Ext: No clubbing, cyanosis, or edema. 2+ DP pulses bilaterally. Neuro: Patient is alert and oriented x4. Strength is 5/5 in upper and lower extremities. Normal patellar DTR. Increased strength of dorsal flexion. Cranial nerves 2-12 are intact. Sensation decreased knees down bilaterally. Able to stand on pointed toes without difficulty. Decreased ability to stand on heels. Normal gait. Speech is clear. Psych: Normal mood and affect. Patient is pleasant and cooperative. Skin: Warm and dry. No rashes noted. Objective Data Vital Signs Vital Signs: Vital Signs - 24 hr 12/07/23 08:40 12/07/23 11:42 12/07/23 13:53 Temperature 96.5 F L Pulse Rate 71 Respiratory Rate 16 Blood Pressure 118/69 Pulse Oximetry 97 Oxygen Delivery Room Air Room Air 12/07/23 21:58 12/07/23 20:35 12/08/23 06:00 Temperature 98 F 97.7 F Pulse Rate 73 65 Re
[2023-12-08 08:00] VITALS: PULSE 65; RESP 18; O2SAT 98
[2023-12-08] MEDS: ONDANSETRON INJ 4 MG/2 ML VIAL IV PUSH (08:33)
[2023-12-08] MEDS: SERTRALINE HCL 50 MG TABLET 150 MG PO (08:36)
[2023-12-08] MEDS: ENOXAPARIN 40 MG/0.4 ML SYRINGE SUB-Q (08:38)
[2023-12-08] MEDS: PANTOPRAZOLE 40 MG TABLET PO (08:38)
[2023-12-08] MEDS: methylPREDNISolone SOD SUCC 1,000 MG in DEXTROSE 5% 100 ML 200 MG IVPB (08:44)
[2023-12-08] MEDS: ACETAMINOPHEN 325 MG TABLET 650 MG PO ×3 (10:02→20:17)
[2023-12-08 13:04] LABS: CMV DNA Quant PCR IU/mL NOT DETECTED; Cytomegalovirus DNA Quant PCR NOT DETECTED Log IU/mL; Cytomegalovirus DNA Source SERUM
[2023-12-08 13:39] VITALS: BP 137/63; PULSE 72; RESP 16; TEMP 36.4; O2SAT 98
[2023-12-08] MEDS: SENNA/DOCUSATE SODIUM TABLET 1 TAB PO ×2 (15:50→20:17)
[2023-12-08 18:23] LABS: Varicella IgM Antibody 0.65
[2023-12-08 20:00] VITALS: PULSE 63; RESP 18; O2SAT 99
[2023-12-08 21:09] VITALS: BP 124/67; PULSE 63; RESP 18; TEMP 36.2; O2SAT 99
[2023-12-09 05:25] LABS: Hematocrit 34.4 % (37.0-47.0); Hemoglobin 11.2 g/dL (12.0-15.0); Mean Corpuscular HGB Conc 32.6 g/dl (32-36); Mean Corpuscular Hemoglobin 29.4 pg (26-34); Mean Corpuscular Volume 90.3 fl (80-100); Mean Platelet Volume 11.1 fl (7.4-10.4); Platelet Count Result 177 k/mm3 (150-375); Red Blood Count 3.81 M/mm3 (4.2-5.4); Red Cell Distribution Width 13.2 % (11.5-14.5); White Blood Count 8.8 K/mm3 (4.5-10.0)
[2023-12-09 05:43] VITALS: BP 119/80; PULSE 55; RESP 18; TEMP 36.1; O2SAT 97
[2023-12-09 05:51] LABS: Alanine Aminotransferase 17 U/L (6-35); Albumin Level 4.1 g/dL (3.5-5.1); Alkaline Phosphatase 49 U/L (38-126); Anion Gap 8 mmol/L (4-12); Aspartate Amino Transferase 17 U/L (14-36); Bilirubin,Total 0.4 mg/dL (0.2-1.3); Blood Urea Nitrogen 15 mg/dL (7-17); Calcium 9.2 mg/dL (8.4-10.2); Carbon Dioxide 24 mmol/L (22-30); Chloride 105 mmol/L (98-107); Estimated CRCL calculation 150 ml/min; Estimated Glomerular Filt Rate > 60; Glucose 127 mg/dL (65-110); Potassium 3.8 mmol/L (3.4-5.0); Sodium 137 mmol/L (137-145)
[2023-12-09] MEDS: KETOROLAC 10 MG TABLET PO (08:24)
[2023-12-09] MEDS: methylPREDNISolone SOD SUCC 1,000 MG in DEXTROSE 5% 100 ML 200 MG IVPB (08:25)
[2023-12-09] MEDS: ONDANSETRON INJ 4 MG/2 ML VIAL IV PUSH (08:25)
[2023-12-09] MEDS: ENOXAPARIN 40 MG/0.4 ML SYRINGE SUB-Q (08:25)
[2023-12-09] MEDS: SERTRALINE HCL 50 MG TABLET 150 MG PO (08:25)
[2023-12-09] MEDS: PANTOPRAZOLE 40 MG TABLET PO (08:25)
--- NOTE | 2023-12-09 08:58 | WPDNEUROPN ---
Progress Note: A&P Assessment and Plan (1) Multiple sclerosis: Code(s): G35 - Multiple sclerosis Status: Acute Plan Ms. Santamaria is a 33 year old female that is 7 months post- who presented on 12/02 due numbness/tingling in the lower extremities. Neuroimaging showed hyperintense lesions in the subcortical white matter, cervical cord, and thoracic cord, with some of the lesions having contrast enhancement. Imaging findings are concerning for demyelinating disease, specifically multiple sclerosis. CSF studies are pending. She has completed five days of steroids. She has had waxing/waning of her symptoms during this admission. - Discharge with prednisone taper -- 60mg daily x 2 days, then 40mg daily x 2 days, then 20mg daily x 2 days, then 10mg daily x 2 days then discontinue - Ordered AQP4 and MOG antibody testing - Discussed DMT for future particularly Kesimpta vs Ocrevus. Patient is also considering seeing an MS specialist in [facility] - Provided office information to coordinate follow-up after discharge Subjective Date/time seen: 12/09/23 08:59 Interval history: Ms. Santamaria is a 33 year old female that is 7 months post- who presented on 12/02 due to numbness/tinging in her feet that started about 3 weeks ago. The numbness progressed up to her knees and perineum. Imaging done during this admission is as follows: MRI brain showed T2 hyperintensities in the L deep cerebral white matter, MRI cervical spine showed several cord lesions at C2/C3 and C3/C4 (the latter having contrast enhancement), and thoracic spine MRI showed T2 lesions at T8/T9 with contrast enhancement, and T2 lesions at T6/T7. CSF studies have been obtained which are pending. She denies any prior MS symptoms. No loss of vision, double vision, unilateral weakness/numbness, incontinence/retention, dysphagia or dysarthria. She has received 5 days of IV solumedrol 1000mg daily. She is still having some numbness in the teeth and the perenial area, as well as the lower extremities from the knees down. Otherwise doing well, ambulating without difficulty, no changes to vision. Review of Systems Review of Systems: All systems reviewed & are unremarkable except as noted in HPI and below Exam Const: General: comfortable and no acute distress HENMT: Mouth: Yes moist mucous membranes Eyes: EOM: EOMs intact bilaterally Other: conjugate gaze Resp: Effort & Inspection: normal respiratory effort Skin: General skin exam: normal color Neuro: Other: AOx3, EOMI, face symmetric, facial sensation intact, tongue protrudes midline, palate midline. Shoulder shrug normal. Strength 5/5 throughout. Sensation reduced from the knees down in both lower extremities. No clonus. FNF normal bilaterally. Language comprehension and fluency intact. Normal gait. Extrem: General: normal to inspection Psych: Mental Status: mental status grossly normal Affect: normal affect Objective Data Vital Signs Vital Signs: Vital Signs - 24 hr 12/08/23 13:39 12/08/23 21:09 12/08/23 20:00 Temperature 36.4 C 36.2 C L Pulse Rate 72 63 63 Respiratory Rate 16 18 18 Blood Pressure 137/63 124/67 Pulse Oximetry 98 99 99 Oxygen Delivery Room Air 12/09/23 05:43 Temperature 36.1 C L Pulse Rate 55 L Respiratory Rate 18 Blood Pressure 119/80 Pulse Oximetry 97 Oxygen Delivery Intake/Output Intake/Output: Intake & Output 12/06/23 12/07/23 12/08/23 12/09/23 23:59 23:59 23:59 23:59 Intake Total 2476 2346 2336 Balance 2476 2346 2336 Meds/Results Medications: Active Medications Generic Name Dose Route Start Last Admin Trade Name Freq PRN Reason Stop Dose Admin Acetaminophen 650 mg 12/05/23 09:20 12/08/23 20:17 Acetaminophen 325 Mg Tablet PO 650 mg Q4H PRN Administration Headache Enoxaparin Sodium 40 mg 12/08/23 09:00 12/09/23 08:25 Enoxaparin 40 Mg/0.4 Ml Syringe SUB-Q 40 mg DAILY PAT Administration Methylprednisolone Sodium
--- NOTE | 2023-12-09 13:43 | PM.DS ---
DS: Admitting Diagnosis Discharge Date 12/09/23 Admitting Diagnosis Multiple sclerosis DS: Discharge Diagnosis Discharge Diagnosis (1) Multiple sclerosis: Code(s): G35 - Multiple sclerosis Status: Acute DS: Summary Hospital Course Reason for hospitalization: Multiple sclerosis Hospital Course: 33 year old female who is 7 months post with no past medical history presented to the hospital for worsening peripheral neuropathy for 3-4 weeks on 12/02. The numbness progressed up to her knees and perineum. Neurology was consulted for concern of MS. MRI brain showed T2 hyperintensities in the L deep cerebral white matter, MRI cervical spine showed several cord lesions at C2/C3 and C3/C4 (the latter having contrast enhancement), and thoracic spine MRI showed T2 lesions at T8/T9 with contrast enhancement, and T2 lesions at T6/T7. Patient received Solumol IV x5 days and was discharged on a prednisone taper. CSF studies have been obtained which are pending.?Patients symptoms continue to wax and wane, however she notes that the lower extremity numbness is improving. She continues to have occasional teeth and perineum numbness. She is able to ambulate independently without difficulty. She denies vision changes, headaches, changes in bowel/bladder. Patient will follow up with neurology in 2 weeks. Patient discharged home with family in stable condition. She will complete her prednisone taper as prescribed and follow up with her PCP in 1 week and neurology in 2 weeks. Status at Discharge Functional status at discharge: independent ambulation Time Spent with Patient Time attestation: Total time spent providing and/or coordinating discharge services: Time spent: Greater than 30 minutes Exam Narrative: AF HR 55 RR 18 SpO2 97 BP 119/80 General: well nourished, well-developed female in no acute respiratory distress who is nontoxic appearing, sitting up in bed. HEENT: Normocephalic. Atraumatic. Pupils equal round reactive to light. Extraocular movement intact. Sclera clear and anicteric. Nares patent. No facial asymmetry. Chest: Lungs are clear to auscultation bilaterally. No wheezes or crackles. CV: Heart was regular rate and rhythm. S1-S2. No murmurs, gallops, or rubs. Abd: Abdomen was soft. Nontender. Nondistended. Positive bowel sounds. No organomegaly or masses. Ext: No clubbing, cyanosis, or edema. 2+ DP pulses bilaterally. Neuro: Patient is alert and oriented x4. Strength is 5/5 in upper and lower extremities. Cranial nerves 2-12 are intact. Sensation decreased knees down bilaterally. Normal gait. Speech is clear. Psych: Normal mood and affect. Patient is pleasant and cooperative. Skin: Warm and dry. No rashes noted. DS: Data Data Completed and Pending Completed studies during hospitalization: Lumbar puncture fluoroscopy Thoracic/lumbar spine CT Cervical spine CT Lumbar MRI Head CT Thoracic MRI Cervical spine MRI Brain MRI Pending studies at discharge: Lumbar Puncture Labs on day of discharge: Labs from last 24 hours 12/09/23 12/04/23 05:07 12:00 WBC 8.8 RBC 3.81 L Hgb 11.2 L Hct 34.4 L MCV 90.3 MCH 29.4 MCHC 32.6 RDW 13.2 Plt Count 177 MPV 11.1 H Sodium 137 Potassium 3.8 Chloride 105 Carbon Dioxide 24 Anion Gap 8 BUN 15 Creatinine 0.60 L Estim Creat Clear Calc 150 Estimated GFR > 60 Glucose 127 H Calcium 9.2 Total Bilirubin 0.4 AST 17 ALT 17 Alkaline Phosphatase 49 Total Protein 7.0 Albumin 4.1 VZV IgM Antibody 0.65 Discharge Plan Discharge Attending physician on discharge: Handy Aponte Consulting providers: Heladio Parsons Discharging Clinician: Pallavi Walker Anticipated Discharge Date/Time: 12/09/23 06:40 Patient Disposition: Home, Self-Care Activity: as tolerated Diet: as tolerated Discharge Instructions: You were seen at the hospital for worsening ascending peripheral neuropathy. Upon further
[2023-12-10 17:59] LABS: Coccidioides Ab to F Ag (IgG) NEGATIVE; Coccidioides Ab to TP Ag (IgM) NEGATIVE
[2023-12-12 08:24] LABS: IgG Index, CSF 1.19; Immunoglobulin G, Serum 1090
[2023-12-12 08:25] LABS: Albumin, CSF 13.6
[2023-12-12 08:26] LABS: IgG, CSF 4.4
[2023-12-13 17:57] LABS: West Nile Virus, IgM <0.90 index
[2023-12-19 19:14] LABS: Myelin Basic Protein, CSF <2.0 mcg/L (< OR = 4.0); Oligoclonal Bands (IgG), CSF PRESENT (ABSENT)
== END 2023-12-09 10:23 | disposition home or self-care (01) | DRG 60 ==
LOC: ANHED 12-04 00:49 → ANH2MED 12-04 01:59
PROVIDERS: Internal Medicine Critical Care Medicine; Student in an Organized Health Care Education/Training Program; Admitting Provider Internal Medicine; Emergency Provider Emergency Medicine; PCP Internal Medicine; Visit Provider Internal Medicine
DX: G35 Multiple sclerosis (principal); M47.812 Spondylosis without myelopathy or radiculopathy, cervical region; M47.816 Spondylosis without myelopathy or radiculopathy, lumbar region
CPT/HCPCS: 36415; 62328; 70470; 70552; 70553; 72126; 72129; 72132; 72156; 72157; 72158; 80048; 80053; 82040; 82042; 82607; 82746; 82784; 83036; 83873; 83916; 85025; 85027; 85610; 85652; 85730; 86038; 86052; 86140; 86362; 86430; 86592; 86617; 86635; 86703; 86787; 86788; 87497; 96360; 97110; 97161; 97165; 99285; A9270; A9577; G0378; G0432; J1650; J2405; J2919; J7030; Q9967